=== PATIENT | female | born 1995 | race Caucasian/White ===

== ENCOUNTER 2016-12-02 18:44 | Inpatient (IN) | payer OTHER ==
[~2016-12-02] VITALS: Ht 162.6 cm; Wt 70.8 kg
[2016-12-02] MEDS: SODIUM CHLOR 0.9% 1000 ML INJ 1,000 ML IV SCH (18:47)
[2016-12-02 18:48] VITALS: BP 111/65; PULSE 99; RESP 20; TEMP 98.2; O2SAT 99
[2016-12-02] MEDS ORDERED: SODIUM CHLORIDE 0.9% FLUSH 10 ML FLUSH IVF PRN (19:00)
[2016-12-02 19:22] LABS: AUTOMATED NEUTROPHIL # 6.5 TH/MM3 (1.8-7.7); BASOPHIL % 0.4 % (0.0-2.0); EOSINOPHIL # 0.1 TH/MM3 (0-0.4); EOSINOPHIL % 1.6 % (0.0-4.0); HEMATOCRIT 38.4 % (35.0-46.0); HEMO FLAGS DIFF FINAL; LYMPH % 13.6 % (9.0-44.0); LYMPHOCYTE # 1.1 TH/MM3 (1.0-4.8); MEAN CELL VOLUME 90.5 FL (80.0-100.0); MEAN CORPUSCULAR HEMOGLOBIN 29.5 PG (27.0-34.0); MEAN CORPUSCULAR HGB CONC 32.6 % (32.0-36.0); MONO % 6.1 % (0.0-8.0); NEUT % 78.3 % (16.0-70.0); PLATELET COUNT 284 TH/MM3 (150-450); RED BLOOD COUNT 4.24 MIL/MM3 (4.00-5.30); RED CELL DISTRIBUTION WIDTH 13.1 % (11.6-17.2); WHITE BLOOD COUNT 8.3 TH/MM3 (4.0-11.0)
[2016-12-02 19:31] LABS: APTT (PATIENT) 25.2 SEC (24.3-30.1); PROTHROMBIN TIME - PATIENT 11.2 SEC (9.8-11.6)
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
[2016-12-02 19:37] LABS: I-STAT POTASSIUM 3.9 MMOL/L (3.5-4.9); I-STAT SODIUM 141 MMOL/L (138-146)
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
[2016-12-02 20:06] LABS: BETA HCG QUANT LESS THAN 1 MIU/ML (0-5)
[2016-12-02 20:13] LABS: ANION GAP 7 MEQ/L (5-15); BICARBONATE 21.4 MEQ/L (21.0-32.0); BLOOD UREA NITROGEN 7 MG/DL (7-18); CHLORIDE 112 MEQ/L (98-107); GLOMERULAR FILTRATION RATE 84 ML/MIN (>89); POTASSIUM 3.9 MEQ/L (3.5-5.1); SODIUM (NA) 140 MEQ/L (136-145)
[2016-12-02 20:18] VITALS: BP 108/64; PULSE 91; RESP 20; O2SAT 99
[2016-12-02] MEDS ORDERED: HYDROmorphone HCL PF 1 MG/ML VIAL IV PUSH ONE ×2 (20:45→21:15)
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
[2016-12-02] MEDS ORDERED: IOHEXOL 350 MG/ML 10 ML VIAL (for RAD DIAG) IV ONE (21:07)
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
[2016-12-02 21:38] VITALS: BP 115/61; PULSE 70; RESP 20; O2SAT 99
[2016-12-02] MEDS ORDERED: CHLORHEXIDINE GLUCONATE 2 % 1 PACK (2 CLOTHS) TOP PRN (21:45)
[2016-12-02] MEDS ORDERED: MISCELLANEOUS NURSING INFORMATION XX SCH (21:45)
[2016-12-02] MEDS ORDERED: HYDROmorphone HCL PF 1 MG/ML VIAL IVP PRN (21:45)
[2016-12-02] MEDS ORDERED: ONDANSETRON HCL 4 MG/2 ML VIAL IV PRN (21:45)
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
[2016-12-03] VITALS: BP 119/73; PULSE 88; RESP 20; TEMP 97.7; O2SAT 100
[2016-12-03] MEDS: HYDROmorphone HCL PF 1 MG/ML VIAL IVP PRN ×5 (00:06→11:18)
[2016-12-03] MEDS: LACTATED RINGER'S 1000 ML INJ 1,000 ML IV SCH ×3 (00:45→18:00)
[2016-12-03 02:42] LABS: AMPHETAMINE, URINE NEG (NEG); BARBITURATES, URINE NEG (NEG); COCAINE, URINE NEG (NEG)
[2016-12-03] MEDS: CHLORHEXIDINE GLUCONATE 2 % 1 PACK (2 CLOTHS) TOP SCH (03:29)
[2016-12-03 04:00] VITALS: BP 101/58; PULSE 79; RESP 18; TEMP 98.7; O2SAT 18
[2016-12-03] MEDS ORDERED: POVIDONE IODINE 5% (ANTISEPSIS KIT) 4 APPLICATIONS EACH NARE PRN (07:00)
[2016-12-03] MEDS ORDERED: INSULIN HUMAN REGULAR 1,000 UNITS/10 ML VIAL SQ PRN (07:00)
[2016-12-03] MEDS ORDERED: LACTATED RINGER'S 1000 ML IV PRN (07:00)
[2016-12-03] MEDS ORDERED: METOPROLOL TARTRATE 25 MG TAB PO PRN (07:00)
[2016-12-03] MEDS ORDERED: SODIUM CHLORID 0.9% 500 ML IV PRN (07:00)
[2016-12-03] MEDS ORDERED: CHLORHEXIDINE GLUCONATE 2 % 1 PACK (2 CLOTHS) TOPICAL PRN (07:00)
[2016-12-03 08:00] VITALS: BP 107/65; PULSE 74; RESP 20; TEMP 98.7; O2SAT 100
[2016-12-03] MEDS ORDERED: DOCUSATE SODIUM 100 MG CAP PO SCH (09:00)
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
[2016-12-03] MEDS ORDERED: ONDANSETRON HCL 4 MG/2 ML VIAL IV PUSH ONE (12:00)
[2016-12-03] MEDS ORDERED: NEOSTIGMINE 3 MG/3 ML SYR IV ONE (12:00)
[2016-12-03] MEDS ORDERED: PROPOFOL 200 MG/20 ML AMP IV ONE (12:00)
[2016-12-03 12:22] VITALS: BP 109/62; PULSE 76; RESP 20; TEMP 98.9; O2SAT 100
[2016-12-03 12:38] LABS: AUTOMATED NEUTROPHIL # 4.1 TH/MM3 (1.8-7.7); BASOPHIL % 0.3 % (0.0-2.0); EOSINOPHIL # 0.1 TH/MM3 (0-0.4); EOSINOPHIL % 2.4 % (0.0-4.0); HEMATOCRIT 30.5 % (35.0-46.0); HEMO FLAGS DIFF FINAL; LYMPH % 15.1 % (9.0-44.0); LYMPHOCYTE # 0.9 TH/MM3 (1.0-4.8); MEAN CELL VOLUME 90.2 FL (80.0-100.0); MEAN CORPUSCULAR HEMOGLOBIN 30.2 PG (27.0-34.0); MEAN CORPUSCULAR HGB CONC 33.4 % (32.0-36.0); MONO % 11.1 % (0.0-8.0); NEUT % 71.1 % (16.0-70.0); PLATELET COUNT 196 TH/MM3 (150-450); RED BLOOD COUNT 3.38 MIL/MM3 (4.00-5.30); RED CELL DISTRIBUTION WIDTH 12.7 % (11.6-17.2); WHITE BLOOD COUNT 5.7 TH/MM3 (4.0-11.0)
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
[2016-12-03 14:16] LABS: BICARBONATE 24.7 MEQ/L (21.0-32.0); POTASSIUM 3.6 MEQ/L (3.5-5.1)
[2016-12-03] MEDS ORDERED: HYDROmorphone HCL PF 2 MG/ML VIAL ONE (14:17)
[2016-12-03] MEDS ORDERED: ACETAMINOPHEN 1000 MG/100 ML VIAL IV ONE (14:21)
[2016-12-03] MEDS ORDERED: DEXAMETHASONE SOD PHOS 4 MG/ML VIAL ONE (14:22)
[2016-12-03] MEDS ORDERED: fentaNYL CITRATE 250 MCG/5 ML AMP ONE (14:22)
[2016-12-03] MEDS ORDERED: MIDAZOLAM HCL 2 MG/2 ML VIAL ONE (14:22)
--- NOTE | 2016-12-03 14:42 | OTSOAPIP ---
PATIENT OFF THE FLOOR FOR SURGERY 2:30 PM. JT Therapist: Nasrin Fang OTR/Luis Manuel Signature on file
[2016-12-03] MEDS ORDERED: GENTAMICIN SULFATE 80 MG/2 ML VIAL ONE (15:28)
[2016-12-03] MEDS ORDERED: ceFAZolin 2 GM PREMIX 50 ML ONE (15:28)
[2016-12-03] MEDS ORDERED: MORPHINE SULFATE 8 MG/ML INJ IV PUSH PRN (17:00)
[2016-12-03] MEDS ORDERED: ONDANSETRON HCL 4 MG/2 ML VIAL IVP PRN (17:00)
[2016-12-03] MEDS ORDERED: diphenhydrAMINE HCL 25 MG CAP PO PRN (17:00)
[2016-12-03] MEDS ORDERED: ACETAMINOPHEN/HYDROcodone 325 MG/5 MG TAB PO PRN (17:00)
[2016-12-03] MEDS ORDERED: NALOXONE HCL 0.4 MG/ML AMP IV PRN (17:00)
[2016-12-03] MEDS ORDERED: MAGNESIUM HYDROXIDE SUSP 30 ML CUP PO PRN (17:00)
[2016-12-03] MEDS ORDERED: Post-op Orders (for Pharmacy) MISC XX ONE (17:00)
[2016-12-03] MEDS ORDERED: SODIUM CHLORIDE 0.9% FLUSH 5 ML FLUSH IVF PRN (17:00)
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
[2016-12-03] MEDS ORDERED: HYDR-3516 PO (17:08)
[2016-12-03] MEDS ORDERED: ENOX40P SQ (17:08)
--- NOTE | 2016-12-03 17:16 | RADRPT ---
EXAM DATE/TIME: 12/03/2016 16:49 [place] COMPARISON: No previous studies available for comparison. INDICATIONS : ORIF left femur fracture. MEDICAL HISTORY : None. SURGICAL HISTORY : None. ENCOUNTER: Subsequent ACUITY: 2 days PAIN SCORE: Non-responsive. LOCATION: Left femur FINDINGS: Intramedullary jonn is present traversing the femur with fixation screws proximally and distally. Ther e is gross anatomical alignment of the fracture fragments. CONCLUSION: Intact postsurgical changes. Aaliyah Cordova MD on December 03, 2016 at 17:12 Board Certified Radiologist. This report was verified electronically.
[2016-12-03] MEDS ORDERED: DO NOT ADM ANY ANTICOAGULANT DRUGS PRN (17:45)
[2016-12-03] MEDS: CALCIUM/VITAMIN D 250 MG/125 U TAB PO SCH (18:00)
[2016-12-03 19:20] VITALS: O2SAT 99
[2016-12-03] MEDS: DOCUSATE SODIUM 50 MG/SENNA 8.6 MG TAB PO SCH (20:49)
[2016-12-03] MEDS: SODIUM CHLORIDE 0.9% FLUSH 5 ML FLUSH IVF SCH (20:49)
[2016-12-03 20:55] VITALS: BP 118/68; PULSE 61; RESP 17; TEMP 96.8; O2SAT 94
[2016-12-03] MEDS: PCA - TOTAL MG MORPHINE DELIVERED PER SHIFT SCH (22:00)
[2016-12-04] VITALS (7 sets, daily range): BP systolic 108–120; BP diastolic 57–66; PULSE 64–89; RESP 16–18; TEMP 96.7–97.9; O2SAT 96–99
[2016-12-04] MEDS: MORPHINE SULFATE 30 MG/30 ML PCA IV SCH ×2 (00:14→07:15)
[2016-12-04] MEDS: LACTATED RINGER'S 1000 ML INJ 1,000 ML IV SCH ×2 (02:56→12:56)
[2016-12-04] MEDS: CHLORHEXIDINE GLUCONATE 2 % 1 PACK (2 CLOTHS) TOP SCH (04:00)
[2016-12-04] MEDS: ENOXAPARIN SODIUM 40 MG/0.4 ML SYRINGE SQ SCH (05:56)
[2016-12-04] MEDS: PCA - TOTAL MG MORPHINE DELIVERED PER SHIFT SCH ×3 (06:00→20:28)
--- NOTE | 2016-12-04 07:53 | PD.ORT.PN ---
Subjective Subjective Remarks Left hip and thigh pain. Pt notes throbbing at night. No new radiating leg pain or numbness. No other questions or concerns. No new CP or SOB. Objective Vitals Vital Signs Date Time Temp Pulse Resp B/P Pulse Ox O2 Delivery O2 Flow Rate FiO2 12/04/16 07:43 97 21 12/04/16 07:15 16 12/04/16 04:50 97.5 64 17 109/63 96 12/04/16 00:50 97.4 71 16 110/66 98 12/04/16 00:14 16 12/03/16 22:00 16 12/03/16 20:55 96.8 61 17 118/68 94 12/03/16 19:20 99 21 12/03/16 18:15 62 16 106/60 99 Nasal Cannula 2 12/03/16 18:00 70 16 110/61 98 Nasal Cannula 2 12/03/16 17:45 62 16 115/67 98 Nasal Cannula 2 12/03/16 17:30 68 16 118/61 99 Nasal Cannula 2 12/03/16 17:25 98.3 74 16 132/69 98 Nasal Cannula 2 12/03/16 12:22 98.9 76 20 109/62 100 12/03/16 08:00 98.7 74 20 107/65 100 I/O 12/03/16 12/03/16 12/03/16 12/04/16 12/04/16 12/04/16 07:00 15:00 23:00 07:00 15:00 23:00 Intake Total 448 ml 654 ml 530 ml 480 ml Output Total 950 ml 1250 ml 1250 ml Balance -502 ml 654 ml -720 ml -770 ml Intake Oral 480 ml 480 ml IV Total 448 ml 654 ml 50 ml Output Urine Total 950 ml 1250 ml 1250 ml # Bowel Movements 0 0 Result Diagram: 12/03/16 1202 12/03/16 1202 Objective Remarks Layig in bed NAD VSS LLE Dressings c/d/i, mild swelling thigh, no erythema thigh supple, calf supple, neg homans +nvi, +motor at, +sens Assessment & Plan Ortho Post Op Day #: 1 Problem List: Assessment and Plan Fracture left femur, shaft, mid distal third. pod#1 s/p ORIF L fem shaft fracture, retrograde jonn D/C R[facility] [employer]INGER - change to po pain meds Lovenox for dvt prophylaxis NonWBing LLE. Crutches or walker. Dry dressing changes beginning pod#2. D/C planning, likely candidate for discharge home. Has sister in town to help. Ortho clear for discharge. F/U in 2 weeks for xrays and wound eval. Jaqueline Martins Dec 04, 2016 07:53
[2016-12-04] MEDS ORDERED: CRUTMIS25 (07:54)
[2016-12-04] MEDS: SODIUM CHLORIDE 0.9% FLUSH 5 ML FLUSH IVF SCH ×2 (09:00→20:26)
[2016-12-04] MEDS: CALCIUM/VITAMIN D 250 MG/125 U TAB PO SCH ×3 (09:45→17:26)
[2016-12-04] MEDS: MULTIVITAMINS/MINERALS THERAPEUTIC TAB PO SCH (09:45)
[2016-12-04] MEDS: DOCUSATE SODIUM 50 MG/SENNA 8.6 MG TAB PO SCH ×2 (09:45→20:25)
[2016-12-04] MEDS: ACETAMINOPHEN/HYDROcodone 325 MG/5 MG TAB PO PRN ×4 (09:45→23:07)
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
--- NOTE | 2016-12-04 11:24 | HHI.FF ---
Face to Face Verification Diagnosis: (1) Femur fracture, left Physical Therapy Order: Evaluate and Treat, Improve ambulation, Strength and gait training Home Health Nursing Order: Medical education Signs/symptoms of disease process Medication education-adverse effect Nursing assessment with vital signs I have seen patient Jesica Temple on 12/04/16. My clinical findings support the need for the requested home health care services because: Ltd mobility - disease progression Limited ability to care for self High risk of falls I certify that my clinical findings support that this patient is homebound because: Post-op weakness Unsteady gait/balance Unsafe to leave home unassisted [id number] bed/chair Unable to use public transportation Erin Woodson Dec 04, 2016 11:24
[2016-12-04] MEDS ORDERED: BEDSIDE COMMODE1 MI1 (11:26)
[2016-12-04] MEDS ORDERED: WALKER WHEELS/F1 MIS (11:26)
[2016-12-04] MEDS ORDERED: WHEEMIS3 (11:26)
[2016-12-04] MEDS: NICOTINE 14 MG/24 HR PATCH T-DERMAL SCH (14:34)
[2016-12-04] MEDS: GABAPENTIN 300 MG CAP PO SCH (17:26)
[2016-12-04] MEDS: MAGNESIUM HYDROXIDE SUSP 30 ML CUP PO SCH (20:26)
[2016-12-04] MEDS: REMOVE OLD PATCH T-DERMAL SCH (20:27)
[2016-12-05] VITALS: BP 113/69; PULSE 74; RESP 16; TEMP 98.1; O2SAT 99
[2016-12-05] MEDS: PCA - TOTAL MG MORPHINE DELIVERED PER SHIFT SCH ×2 (00:40→13:31)
[2016-12-05] MEDS: ACETAMINOPHEN/HYDROcodone 325 MG/5 MG TAB PO PRN (05:10)
[2016-12-05] MEDS: ENOXAPARIN SODIUM 40 MG/0.4 ML SYRINGE SQ SCH (05:49)
[2016-12-05 08:00] VITALS: BP 109/59; PULSE 75; RESP 19; TEMP 97.7; O2SAT 99
[2016-12-05] MEDS: CALCIUM/VITAMIN D 250 MG/125 U TAB PO SCH ×3 (08:58→18:00)
[2016-12-05] MEDS: DOCUSATE SODIUM 50 MG/SENNA 8.6 MG TAB PO SCH ×2 (08:58→20:10)
[2016-12-05] MEDS: NICOTINE 14 MG/24 HR PATCH T-DERMAL SCH (08:58)
[2016-12-05] MEDS: GABAPENTIN 300 MG CAP PO SCH ×3 (08:58→18:00)
[2016-12-05] MEDS: MULTIVITAMINS/MINERALS THERAPEUTIC TAB PO SCH (08:58)
[2016-12-05] MEDS: SODIUM CHLORIDE 0.9% FLUSH 5 ML FLUSH IVF SCH ×2 (08:59→20:10)
--- NOTE | 2016-12-05 09:13 | PD.ORT.PN ---
Subjective Post Op Day #: 2 Subjective Remarks Pt laying in bed, upset pain medication is not every 4 hours. She is afraid pain will wake her up again if she has to wait every 6 hours. Grandparents at bedside. She wants to work with PT and learn to walk with walker/crutches. Plan of care and adolescent narcotic use discussed in lengthy detail with RN. She wants to go home once pain is controlled. Objective Vitals Vital Signs Date Time Temp Pulse Resp B/P Pulse Ox O2 Delivery O2 Flow Rate FiO2 12/05/16 00:00 98.1 74 16 113/69 99 12/04/16 20:00 97.9 89 16 120/66 99 12/04/16 16:00 96.7 77 18 110/59 98 12/04/16 12:00 96.7 73 18 112/64 99 I/O 12/04/16 12/04/16 12/04/16 12/05/16 12/05/16 12/05/16 07:00 15:00 23:00 07:00 15:00 23:00 Intake Total 480 ml 600 ml 720 ml 480 ml Output Total 1250 ml 1100 ml Balance -770 ml -500 ml 720 ml 480 ml Intake Oral 480 ml 600 ml 720 ml 480 ml Output Urine Total 1250 ml 1100 ml # Voids 2 2 # Bowel Movements 0 0 Result Diagram: 12/03/16 1202 12/03/16 1202 Imaging Last Impressions Femur X-Ray 12/03/16 0000 Signed Impressions: Service Date/Time: November 16:49 - CONCLUSION: Intact postsurgical changes. K. Chalo Cordova MD Thoracic Spine CT 12/02/161846 Signed Impressions: Service Date/Time: Friday, December 02, 2016 20:53 - CONCLUSION: Mild scoliosis otherwise negative. Chito Chowdhury MD FACR Pelvis X-Ray 12/02/161846 Signed Impressions: Service Date/Time: Friday, December 02, 2016 19:33 - CONCLUSION: Negative Chito Chowdhury MD FACR Maxillofacial CT 12/02/161846 Signed Impressions: Service Date/Time: Friday, December 02, 2016 20:47 - CONCLUSION: Negative for fracture. Chito Chowdhury MD FACR Lumbar Spine CT 12/02/161846 Signed Impressions: Service Date/Time: Friday, December 02, 2016 20:53 - CONCLUSION: Negative for an acute process. Chito Chowdhury MD FACR Head CT 12/02/161846 Signed Impressions: Service Date/Time: Friday, December 02, 2016 20:47 - CONCLUSION: Negative acute traumatic injury. Chito Chowdhury MD FACR Chest X-Ray 12/02/161846 Signed Impressions: Service Date/Time: Friday, December 02, 2016 19:29 - CONCLUSION: Minimal parenchymal changes left base. Chito Chowdhury MD FACR Chest CT 12/02/161846 Signed Impressions: Service Date/Time: Friday, December 02, 2016 20:53 - CONCLUSION: Negative for acute traumatic injury. Chito Chowdhury MD FACR Cervical Spine CT 12/02/161846 Signed Impressions: Service Date/Time: Friday, December 02, 2016 20:47 - CONCLUSION: Negative for acute process. Chito Chowdhury MD FACR Abdomen/Pelvis CT 12/02/161846 Signed Impressions: Service Date/Time: Friday, December 02, 2016 20:53 - CONCLUSION: Negative for acute traumatic injury. Chito Chowdhury MD FACR Procedures Fracture left femur, shaft, mid distal third. s/p ORIF L fem shaft fracture, retrograde jonn Objective Remarks Layig in bed NAD VSS LLE Dressings c/d/i, mild swelling thigh, no erythema thigh supple, calf supple, neg homans +nvi, +motor at, +sens Assessment & Plan Ortho Post Op Day #: 2 Problem List: (1) Femur fracture, left Assessment and Plan Fracture left femur, shaft, mid distal third. pod#2 s/p ORIF L fem shaft fracture, retrograde jonn Pain medication adjusted. Rx on chart. DVT changed to Xarelto, pt has no insurance, 20mg cut in half, 10mg QD for 20 days. NonWBing LLE. Crutches or walker. Daily dry dressing changes D/C planning, once pain under control and works with PT - likely candidate for discharge home later tonight. Has sister in town to help. Plan discussed in detail with RN. Ortho clear for discharge. F/U in 2 weeks for xrays and wound eval. Fiona Christian Dec 05, 2016 09:13
[2016-12-05] MEDS: IBUPROFEN 600 MG TAB PO SCH ×2 (09:33→13:08)
[2016-12-05] MEDS ORDERED: XARE20TA PO (10:06)
[2016-12-05] MEDS ORDERED: MAGN400S PO (10:25)
[2016-12-05] MEDS ORDERED: SENN1TAB PO (10:25)
[2016-12-05] MEDS: ACETAMINOPHEN/HYDROcodone 325 MG/7.5 MG TAB PO PRN ×4 (11:12→23:54)
[2016-12-05 12:00] VITALS: BP 138/84; PULSE 81; RESP 18; TEMP 96.8; O2SAT 100
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
[2016-12-05] MEDS: KETOROLAC TROMETHAMINE 30 MG/ML (IVP) VIAL IV PUSH SCH ×3 (14:52→23:54)
[2016-12-05] MEDS: LACTULOSE SYRUP 20 GM/30 ML CUP PO SCH (14:52)
[2016-12-05 16:00] VITALS: BP 121/73; PULSE 78; RESP 19; TEMP 98.6; O2SAT 100
[2016-12-05] MEDS: REMOVE OLD PATCH T-DERMAL SCH (20:09)
[2016-12-05] MEDS: MAGNESIUM HYDROXIDE SUSP 30 ML CUP PO SCH (20:10)
[2016-12-05 20:15] VITALS: BP 117/73; PULSE 76; RESP 16; TEMP 97.7; O2SAT 100
[2016-12-06] VITALS: BP 111/63; PULSE 99; RESP 16; TEMP 97.7; O2SAT 98
[2016-12-06] MEDS: ACETAMINOPHEN/HYDROcodone 325 MG/7.5 MG TAB PO PRN ×3 (04:40→12:58)
[2016-12-06] MEDS: ENOXAPARIN SODIUM 40 MG/0.4 ML SYRINGE SQ SCH (04:41)
[2016-12-06] MEDS: KETOROLAC TROMETHAMINE 30 MG/ML (IVP) VIAL IV PUSH SCH ×2 (04:41→11:43)
[2016-12-06] MEDS: LACTULOSE SYRUP 20 GM/30 ML CUP PO SCH (08:37)
[2016-12-06] MEDS: NICOTINE 14 MG/24 HR PATCH T-DERMAL SCH (08:37)
[2016-12-06] MEDS: CALCIUM/VITAMIN D 250 MG/125 U TAB PO SCH ×2 (08:38→11:43)
[2016-12-06] MEDS: SODIUM CHLORIDE 0.9% FLUSH 5 ML FLUSH IVF SCH (08:38)
[2016-12-06] MEDS: MULTIVITAMINS/MINERALS THERAPEUTIC TAB PO SCH (08:38)
[2016-12-06] MEDS: GABAPENTIN 300 MG CAP PO SCH ×2 (08:38→11:43)
[2016-12-06] MEDS: DOCUSATE SODIUM 50 MG/SENNA 8.6 MG TAB PO SCH (08:38)
--- NOTE | 2016-12-06 09:37 | PD.ORT.PN ---
Subjective Post Op Day #: 3 Subjective Remarks Pt laying in bed, awake and alert and answering questions appropriately. Pt admits pain is much better under control She worked with PT and feels comfortable using a walker. Pt ready for discharge with her Aunt in [facility] today. Objective Vitals Vital Signs Date Time Temp Pulse Resp B/P Pulse Ox O2 Delivery O2 Flow Rate FiO2 12/06/16 00:00 97.7 99 16 111/63 98 12/05/16 20:15 97.7 76 16 117/73 100 12/05/16 16:00 98.6 78 19 121/73 100 12/05/16 12:00 96.8 81 18 138/84 100 I/O 12/05/16 12/05/16 12/05/16 12/06/16 12/06/16 12/06/16 07:00 15:00 23:00 07:00 15:00 23:00 Intake Total 480 ml 2360 ml 480 ml Balance 480 ml 2360 ml 480 ml Intake Oral 480 ml 2360 ml 480 ml # Voids 2 6 2 # Bowel Movements 1 Result Diagram: 12/03/16 1202 12/03/16 1202 Imaging Last Impressions Femur X-Ray 12/03/16 0000 Signed Impressions: Service Date/Time: November 16:49 - CONCLUSION: Intact postsurgical changes. Aaliyah Cordova MD Thoracic Spine CT 12/02/161846 Signed Impressions: Service Date/Time: Friday, December 02, 2016 20:53 - CONCLUSION: Mild scoliosis otherwise negative. Chito Chowdhury MD FACR Pelvis X-Ray 12/02/161846 Signed Impressions: Service Date/Time: Friday, December 02, 2016 19:33 - CONCLUSION: Negative Chito Chowdhury MD FACR Maxillofacial CT 12/02/161846 Signed Impressions: Service Date/Time: Friday, December 02, 2016 20:47 - CONCLUSION: Negative for fracture. Chito Chowdhury MD FACR Lumbar Spine CT 12/02/161846 Signed Impressions: Service Date/Time: Friday, December 02, 2016 20:53 - CONCLUSION: Negative for an acute process. Chito Chowdhury MD FACR Head CT 12/02/161846 Signed Impressions: Service Date/Time: Friday, December 02, 2016 20:47 - CONCLUSION: Negative acute traumatic injury. Chito Chowdhury MD FACR Chest X-Ray 12/02/161846 Signed Impressions: Service Date/Time: Wednesday, December 02, 2016 19:29 - CONCLUSION: Minimal parenchymal changes left base. Chito Chowdhury MD FACR Chest CT 12/02/161846 Signed Impressions: Service Date/Time: Friday, December 02, 2016 20:53 - CONCLUSION: Negative for acute traumatic injury. Chito Chowdhury MD FACR Cervical Spine CT 12/02/161846 Signed Impressions: Service Date/Time: Wednesday, December 02, 2016 20:47 - CONCLUSION: Negative for acute process. Chito Chowdhury MD FACR Abdomen/Pelvis CT 12/02/161846 Signed Impressions: Service Date/Time: Wednesday, December 02, 2016 20:53 - CONCLUSION: Negative for acute traumatic injury. Chito Chowdhury MD FACR Procedures Fracture left femur, shaft, mid distal third. s/p ORIF L fem shaft fracture, retrograde jonn Objective Remarks Layig in bed NAD VSS LLE Dressings c/d/i, mild swelling thigh, no erythema thigh supple, calf supple, neg homans +nvi, +motor at, +sens Assessment & Plan Ortho Post Op Day #: 3 Problem List: (1) Femur fracture, left Assessment and Plan Fracture left femur, shaft, mid distal third. pod#3 s/p ORIF L fem shaft fracture, retrograde jonn Pain medication adjusted. Rx on chart. DVT changed to Xarelto, pt has no insurance, 20mg cut in half, 10mg QD for 20 days. NonWBing LLE. Crutches or walker. Daily dry dressing changes Clear for discharge today from an orthopedic standpoint. F/U in 2 weeks for xrays and wound eval. Fiona Christian Dec 06, 2016 09:37
[2016-12-06 11:14] VITALS: BP 127/76; PULSE 70; RESP 16; TEMP 97.2; O2SAT 100
[2016-12-06] MEDS ORDERED: KETO10 PO (13:36)
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
== END 2016-12-06 14:29 | disposition home or self-care (01) | DRG 482 ==
LOC: NEPE 18:44 → NEDA 21:36 → N05B 23:57 → N06B 12-03 15:53 → N06A 12-03 18:43
PROVIDERS: ADMIT Surgery Trauma Surgery; ATTEND Surgery Trauma Surgery
PROC: 0QS906Z Reposition Left Femoral Shaft with Intramedullary Internal Fixation Device, Open Approach (ICD-10-PCS; principal; 2016-12-03 15:30)
DX: S72.302A Unspecified fracture of shaft of left femur, initial encounter for closed fracture (principal); F17.200 Nicotine dependence, unspecified, uncomplicated; V23.4XXA Motorcycle driver injured in collision with car, pick-up truck or van in traffic accident, initial encounter
CPT/HCPCS: 51702; 70450; 70486; 71010; 71260; 72125; 72128; 72131; 72170; 73552; 74177; 76000; 80048; 80307; 82435; 82565; 82947; 84132; 84295; 84520; 84702; 85025; 85610; 85730; 86077; 86850; 86870; 86900; 86901; 87641; 94150; 96361; 96374; 96375; C1713; C1769; J0131; J0690; J1100; J1170; J1580; J1650; J1885; J2250; J2270; J2405; J2710; J3010; J7030; J7120; Q9967